=== PATIENT | female | born 1955 | race Two or more races ===

== ENCOUNTER 2017-12-04 21:53 | Emergency (ER) | payer BC | END 2017-12-05 02:40 | disposition home or self-care (01) | LOC: FTE 21:53 | DX: S31.823A Puncture wound without foreign body of left buttock, initial encounter (principal); R40.2412 Glasgow coma scale score 13-15, at arrival to emergency department; W46.0XXA Contact with hypodermic needle, initial encounter; Y92.9 Unspecified place or not applicable | CPT/HCPCS: 99283; Z7502 ==